=== PATIENT | male | born 1965 | race Two or more races ===

== ENCOUNTER 2024-06-26 20:21 | Emergency (ER) | payer OTHER ==
[~2024-06-26] VITALS: Ht 177.8 cm; Wt 90.7 kg
[~2024-06-26 20:21] MED LIST: DESPEC-DM TABL1 EACH PO; KETO10TA2 PO; ORPH100T PO; ZITHROMAX PO
[2024-06-26 20:37] VITALS: BP 136/75; O2SAT 99
[2024-06-27] MEDS ORDERED: KETOROLAC TROMETHAMINE 60 MG VIAL IM STA (00:55)
[2024-06-27] MEDS ORDERED: KETOROLAC TROMETHAMINE 60 MG VIAL IM ONE (01:01)
[2024-06-27] MEDS ORDERED: KETO10TA2 PO (02:43)
== END 2024-06-27 02:45 ==
LOC: ER 20:24
DX: S89.81XA Other specified injuries of right lower leg, initial encounter (principal); W10.8XXA Fall (on) (from) other stairs and steps, initial encounter; Y93.89 Activity, other specified; Y92.018 Other place in single-family (private) house as the place of occurrence of the external cause; E11.9 Type 2 diabetes mellitus without complications
CPT/HCPCS: 73560; 96372; 99283; J1885